=== PATIENT | female | born 1945 | race Caucasian/White ===

== ENCOUNTER 2019-07-21 13:54 | Outpatient (CLI) | payer MEDICARE ==
[~2019-07-21 13:54] MED LIST: ARIP2TAB2 PO; DULO60CA7 PO
== END 2019-07-21 23:59 | disposition home or self-care (01) ==
LOC: CFH 13:54
PROVIDERS: ATTEND Nurse Practitioner
DX: S52.591A Other fractures of lower end of right radius, initial encounter for closed fracture (principal); S52.691A Other fracture of lower end of right ulna, initial encounter for closed fracture; M18.11 Unilateral primary osteoarthritis of first carpometacarpal joint, right hand; X58.XXXA Exposure to other specified factors, initial encounter; Y93.89 Activity, other specified; Y92.89 Other specified places as the place of occurrence of the external cause; Y99.8 Other external cause status